=== PATIENT | male | born 1990 | race Caucasian/White ===

== ENCOUNTER 2019-01-15 07:44 | Emergency (ER) | payer OTHER ==
[~2019-01-15] VITALS: Ht 180.3 cm; Wt 85.3 kg
--- NOTE | 2019-01-15 07:47 | NUR ---
Patient ambulated to bed 7. RN evaluating patient at bedside.
[2019-01-15 07:52] VITALS: BP 125/85
--- NOTE | 2019-01-15 07:56 | NUR ---
c/o anxiety x2 days. pt reports "constant feeling of unease" usually after using inhaler for asthma and lasting about 10 hours at a time. last used inhaler this morning for wheezing, lung sounds clear throughout at this time. - cp, - n/v, cap refil <2 sec, radial pulses 2+, - edema. teports tingling in ble. vss. er md to see pt. medhx:anxiety, asthma rx:albuterol
[2019-01-15 09:22] VITALS: BP 117/61
--- NOTE | 2019-01-15 09:22 | NUR ---
Patient discharged with v/s stable. Written and verbal after care instructions given and explained. Patient verbalized understanding. Ambulatory with steady gait. All questions addressed prior to discharge. Advised to follow up with PMD.
== END 2019-01-15 09:22 | disposition home or self-care (01) ==
LOC: MED 07:44
DX: F41.9 Anxiety disorder, unspecified (principal); J45.909 Unspecified asthma, uncomplicated
CPT/HCPCS: 93005; 99283